=== PATIENT | male | born 1930 | race Asian ===

== ENCOUNTER 2018-07-21 19:10 | Inpatient (IN) | payer MEDICARE, MEDICAID ==
[~2018-07-21] VITALS: Ht 165.1 cm; Wt 58.5 kg
[2018-07-21] MEDS ORDERED: SODIUM CHLORIDE 0.9% 1,000 ML IV ONE (19:55)
[2018-07-21 20:35] LABS: BASOPHILS % 0.4 % (0.0-2.0); EOSINOPHILS % 1.2 % (0.0-5.0); HEMATOCRIT. 38.8 % (42.0-52.0); HEMOGLOBIN. 13.9 g/dL (14.0-18.0); LYMPHOCYTES % 13.1 % (20.0-50.0); MEAN CORPUSCULAR HEMOGLOBIN 31.2 pg (28.0-32.0); MEAN CORPUSCULAR VOLUME 86.8 fL (80.0-94.0); MEAN PLATELET VOLUME 7.9 fl (7.4-10.4); MONOCYTES % 5.3 % (2.0-8.0); PLATELET 166 x1000/uL (130-400); RED BLOOD CELL COUNT 4.47 mill/uL (4.7-6.1); RED CELL DISTRIBUTION WIDTH 14.5 % (11.6-14.6)
[2018-07-21 20:40] LABS: PARTIAL THROMBOPLASTIN TIME 26.8 sec (23.4-31.0); PROTHROMBIN TIME 10.5 sec (9.1-11.1)
[2018-07-21 20:43] LABS: CHLORIDE 101 mEq/L (98-107)
[2018-07-21] MEDS ORDERED: FUROSEMIDE 20MG/2ML VIAL IVP ONE (21:45)
[2018-07-21] MEDS: SODIUM CHLORIDE 0.9% 1,000 ML IV SCH (22:19)
[2018-07-21] MEDS ORDERED: ACETAMINOPHEN 325MG TABLET PO PRN (22:30)
[2018-07-21] MEDS ORDERED: LORAZEPAM 2MG/ML CPJ IV PRN (22:30)
[2018-07-21] MEDS ORDERED: ENOXAPARIN 40MG/0.4ML SYR SUBCUT SCH (22:30)
[2018-07-21] MEDS ORDERED: ONDANSETRON HCL 4MG/2ML INJ IV PRN (22:30)
[2018-07-21 23:12] LABS: CLARITY URINE CLEAR (CLEAR); COLOR URINE YELLOW (YELLOW); KETONES URINE NEGATIVE (NEGATIVE); LEUKOCYTE ESTERASE URINE TRACE (NEGATIVE); NITRITE URINE NEGATIVE (NEGATIVE); OCCULT BLOOD URINE NEGATIVE (NEGATIVE); PROTEIN URINE NEGATIVE (NEGATIVE); SPECIFIC GRAVITY URINE 1.014 (1.005-1.030)
[2018-07-22 01:05] VITALS: BP 114/60
[2018-07-22] MEDS ORDERED: DEXTROSE 50% WATER 50ML SYRINGE IV PRN (01:30)
[2018-07-22] MEDS: BLOOD SUGAR DIAGNOSTIC STRIP TEST SCH ×4 (06:33→20:11)
[2018-07-22] MEDS: INSULIN LISPRO 100 UNITS/ML SUBCUT SCH ×4 (06:36→20:10)
[2018-07-22 08:00] VITALS: BP 108/67
[2018-07-22] MEDS: ENOXAPARIN 40MG/0.4ML SYR SUBCUT SCH (08:51)
[2018-07-22 09:12] LABS: BASOPHILS % 1.1 % (0.0-2.0); EOSINOPHILS % 2.2 % (0.0-5.0); HEMATOCRIT. 36.3 % (42.0-52.0); HEMOGLOBIN. 12.9 g/dL (14.0-18.0); MEAN CORPUSCULAR VOLUME 87.2 fL (80.0-94.0); MONOCYTES % 5.7 % (2.0-8.0); PLATELET 124 x1000/uL (130-400); RED BLOOD CELL COUNT 4.16 mill/uL (4.7-6.1); RED CELL DISTRIBUTION WIDTH 14.6 % (11.6-14.6)
[2018-07-22 09:36] LABS: CHLORIDE 106 mEq/L (98-107)
[2018-07-22 09:46] LABS: PHOSPHORUS 2.9 mg/dL (2.5-4.9)
[2018-07-22 12:00] VITALS: BP 90/57
[2018-07-22] MEDS ORDERED: MAGNESIUM 2 G PREMIX 50 ML IV NR (15:00)
[2018-07-22 16:00] VITALS: BP 108/65
[2018-07-22] MEDS: SODIUM CHLORIDE 0.9% 1,000 ML IV SCH (18:12)
[2018-07-22 20:00] VITALS: BP 121/71
[2018-07-23] VITALS: BP 131/67
[2018-07-23 04:00] VITALS: BP 131/77
[2018-07-23] MEDS: BLOOD SUGAR DIAGNOSTIC STRIP TEST SCH ×4 (06:10→21:45)
[2018-07-23] MEDS: INSULIN LISPRO 100 UNITS/ML SUBCUT SCH ×4 (06:13→21:46)
[2018-07-23 08:00] VITALS: BP 115/73
[2018-07-23 08:50] LABS: CHLORIDE 105 mEq/L (98-107)
[2018-07-23] MEDS: ENOXAPARIN 40MG/0.4ML SYR SUBCUT SCH (09:00)
[2018-07-23 09:05] LABS: BASOPHILS % 0.6 % (0.0-2.0); EOSINOPHILS % 1.2 % (0.0-5.0); HEMATOCRIT. 37.3 % (42.0-52.0); HEMOGLOBIN. 13.1 g/dL (14.0-18.0); LYMPHOCYTES % 15.6 % (20.0-50.0); MEAN CORPUSCULAR HEMOGLOBIN 30.7 pg (28.0-32.0); MEAN CORPUSCULAR VOLUME 87.4 fL (80.0-94.0); MEAN PLATELET VOLUME 8.1 fl (7.4-10.4); NEUTROPHILS % 76.6 % (40.0-76.0); PLATELET 132 x1000/uL (130-400); RED BLOOD CELL COUNT 4.26 mill/uL (4.7-6.1); RED CELL DISTRIBUTION WIDTH 14.6 % (11.6-14.6)
[2018-07-23 12:00] VITALS: BP 123/75
[2018-07-23] MEDS: SODIUM CHLORIDE 0.9% 1,000 ML IV SCH (14:58)
[2018-07-23 16:00] VITALS: BP 137/71
[2018-07-23] MEDS ORDERED: CEFTRIAXONE 1,000 MG in DEXTROSE 5% WATER 50 ML IV SCH (18:00)
[2018-07-23 20:00] VITALS: BP 112/63
[2018-07-24] VITALS: BP 114/63
[2018-07-24 04:00] VITALS: BP 128/75
[2018-07-24] MEDS: INSULIN LISPRO 100 UNITS/ML SUBCUT SCH ×2 (06:42→13:02)
[2018-07-24] MEDS: BLOOD SUGAR DIAGNOSTIC STRIP TEST SCH ×2 (06:42→11:45)
[2018-07-24 08:00] VITALS: BP 128/75
[2018-07-24 08:13] LABS: BASOPHILS % 0.4 % (0.0-2.0); EOSINOPHILS % 1.6 % (0.0-5.0); HEMATOCRIT. 36.4 % (42.0-52.0); HEMOGLOBIN. 12.8 g/dL (14.0-18.0); LYMPHOCYTES % 16.1 % (20.0-50.0); MEAN CORPUSCULAR HEMOGLOBIN 30.6 pg (28.0-32.0); MEAN PLATELET VOLUME 8.1 fl (7.4-10.4); MONOCYTES % 5.4 % (2.0-8.0); NEUTROPHILS % 76.5 % (40.0-76.0); PLATELET 148 x1000/uL (130-400); RED BLOOD CELL COUNT 4.19 mill/uL (4.7-6.1); RED CELL DISTRIBUTION WIDTH 14.4 % (11.6-14.6)
[2018-07-24 08:56] LABS: CHLORIDE 107 mEq/L (98-107)
[2018-07-24] MEDS: ENOXAPARIN 40MG/0.4ML SYR SUBCUT SCH (09:50)
[2018-07-24 11:04] VITALS: BP 128/75
[2018-07-24 12:00] VITALS: BP 127/71
[2018-07-24] MEDS ORDERED: INSULIN GLARGINE UD 100 UNITS/ML SYR SUBCUT SCH (21:00)
[2018-07-25] MEDS ORDERED: GLIPIZIDE 5MG TABLET PO SCH (06:45)
== END 2018-07-24 16:43 | DRG 637 ==
LOC: ER 19:10 → 5WST 22:05 → EDBEDREQ 22:09 → EDBEDREQTM 22:09 → CANRESERV 22:42 → ENRESERV 22:42
PROVIDERS: ADMIT Internal Medicine Nephrology; ATTEND Internal Medicine Nephrology
DX: E11.65 Type 2 diabetes mellitus with hyperglycemia (principal); K85.90 Acute pancreatitis without necrosis or infection, unspecified; N39.0 Urinary tract infection, site not specified; E44.0 Moderate protein-calorie malnutrition; E83.42 Hypomagnesemia; E78.00 Pure hypercholesterolemia, unspecified; F03.90 Unspecified dementia, unspecified severity, without behavioral disturbance, psychotic disturbance, mood disturbance, and anxiety; I10 Essential (primary) hypertension; Z86.73 Personal history of transient ischemic attack (TIA), and cerebral infarction without residual deficits; Z68.21 Body mass index [BMI] 21.0-21.9, adult
CPT/HCPCS: 36415; 71045; 76705; 80048; 80061; 82962; 83735; 83880; 84100; 84484; 92610; 93306; 96361; 96374; 99285; A6261; J0696; J1650; J1815; J1940; J3475; J7030; J7060; A4315

== ENCOUNTER 2019-09-20 16:04 | Inpatient (IN) | payer MEDICARE, MEDICAID ==
[~2019-09-20] VITALS: Ht 167.6 cm; Wt 48.1 kg
[2019-09-20] MEDS ORDERED: SODIUM CHLORIDE 0.9% 1,000 ML IV ONE (18:50)
[2019-09-20 19:14] LABS: BASOPHILS % 1.4 % (0.0-2.0); EOSINOPHILS % 1.9 % (0.0-5.0); HEMATOCRIT. 37.9 % (42.0-52.0); HEMOGLOBIN. 13.2 g/dL (14.0-18.0); LYMPHOCYTES % 20.4 % (20.0-50.0); MEAN CORPUSCULAR HEMOGLOBIN 31.2 pg (28.0-32.0); MEAN CORPUSCULAR VOLUME 89.6 fL (80.0-94.0); MEAN PLATELET VOLUME 7.7 fl (7.4-10.4); MONOCYTES % 8.6 % (2.0-8.0); NEUTROPHILS % 67.7 % (40.0-76.0); PLATELET 253 x1000/uL (130-400); RED BLOOD CELL COUNT 4.23 mill/uL (4.7-6.1); RED CELL DISTRIBUTION WIDTH 15.1 % (11.6-14.6)
[2019-09-20 19:18] LABS: CHLORIDE 112 mEq/L (98-107)
[2019-09-20 19:19] LABS: INR 1.1; PROTHROMBIN TIME 11.6 sec (9.6-11.0)
[2019-09-20] MEDS ORDERED: FUROSEMIDE 20MG/2ML VIAL IVP ONE (20:15)
[2019-09-20] MEDS ORDERED: ONDANSETRON HCL 4MG/2ML INJ IV PRN (22:45)
[2019-09-20] MEDS ORDERED: CLONIDINE 0.1MG TABLET PO PRN (22:45)
[2019-09-20] MEDS ORDERED: HYDROCODONE/ACETAMINOPHEN 5/325MG TABLET PO PRN (22:45)
[2019-09-20] MEDS ORDERED: IPRATROPIUM/ALBUTEROL 0.5-3(2.5)MG/3ML NEB NEB PRN (22:45)
[2019-09-20] MEDS ORDERED: LORAZEPAM 2MG/ML CPJ IV PRN (22:45)
[2019-09-20] MEDS ORDERED: MORPHINE SULFATE 2 MG/ML CPJ (NOT FOR IM USE) IV PRN (22:45)
[2019-09-21] MEDS: SODIUM CHLORIDE 0.9% 1,000 ML IV SCH ×2 (04:13→17:45)
[2019-09-21 04:30] LABS: CLARITY URINE CLEAR (CLEAR); COLOR URINE YELLOW (YELLOW); KETONES URINE NEGATIVE (NEGATIVE); LEUKOCYTE ESTERASE URINE NEGATIVE (NEGATIVE); NITRITE URINE NEGATIVE (NEGATIVE); OCCULT BLOOD URINE TRACE (NEGATIVE); PROTEIN URINE NEGATIVE (NEGATIVE); SPECIFIC GRAVITY URINE 1.012 (1.005-1.030); UROBILINOGEN URINE 0.2 E.U./dL (0.2-1.0)
[2019-09-21 06:34] LABS: BASOPHILS % 0.8 % (0.0-2.0); EOSINOPHILS % 0.7 % (0.0-5.0); HEMATOCRIT. 37.6 % (42.0-52.0); HEMOGLOBIN. 13.1 g/dL (14.0-18.0); LYMPHOCYTES % 12.7 % (20.0-50.0); MEAN CORPUSCULAR HEMOGLOBIN 31.5 pg (28.0-32.0); MEAN PLATELET VOLUME 7.7 fl (7.4-10.4); MONOCYTES % 6.3 % (2.0-8.0); NEUTROPHILS % 79.5 % (40.0-76.0); PLATELET 186 x1000/uL (130-400); RED BLOOD CELL COUNT 4.17 mill/uL (4.7-6.1); RED CELL DISTRIBUTION WIDTH 14.9 % (11.6-14.6)
[2019-09-21] MEDS ORDERED: ENOXAPARIN 40MG/0.4ML SYR SUBCUT SCH (09:00)
[2019-09-21 09:30] VITALS: BP 169/94
[2019-09-21 12:00] VITALS: BP 134/83
[2019-09-21] MEDS ORDERED: DEXTROSE 50% WATER 50ML SYRINGE IV PRN (12:15)
[2019-09-21] MEDS: BLOOD SUGAR DIAGNOSTIC STRIP TEST SCH ×3 (12:20→20:55)
[2019-09-21] MEDS ORDERED: GLIP10TA10 PO (12:50)
[2019-09-21] MEDS ORDERED: CRES10 PO (12:50)
[2019-09-21] MEDS ORDERED: CIPR2.5D9 EACHEYE (12:50)
[2019-09-21] MEDS ORDERED: LAMO25TA3 PO (12:50)
[2019-09-21] MEDS ORDERED: INSU100I28 SQ (12:50)
[2019-09-21] MEDS ORDERED: METF-415 PO (12:50)
[2019-09-21] MEDS ORDERED: SITA100T11 PO (12:50)
[2019-09-21] MEDS ORDERED: TOPUD PO (12:50)
[2019-09-21] MEDS: THIAMINE HCL 100MG TABLET PO SCH (13:55)
[2019-09-21] MEDS: INSULIN LISPRO 100 UNITS/ML SUBCUT SCH ×3 (13:57→21:07)
[2019-09-21 16:00] VITALS: BP 137/81
[2019-09-21] MEDS ORDERED: LAMOTRIGINE 25 MG PO SCH (17:00)
[2019-09-21] MEDS ORDERED: METFORMIN HCL 850MG TABLET PO SCH (17:50)
[2019-09-21] MEDS: MEGESTROL ACETATE 400 MG/10 ML UDC PO SCH (18:31)
[2019-09-21] MEDS ORDERED: ACETAMINOPHEN 325MG TABLET PO PRN (19:44)
[2019-09-21 20:30] VITALS: BP 114/76
[2019-09-21] MEDS ORDERED: MEDICATION NOT ON FORMULARY EA (Rosuvastatin Calcium (Crestor) 10 MG) PO SCH (21:00)
[2019-09-21] MEDS: ATORVASTATIN CALCIUM 20MG TABLET PO SCH (21:08)
[2019-09-21] MEDS: INSULIN GLARGINE UD 100 UNITS/ML SYR SUBCUT SCH (21:08)
[2019-09-21] MEDS: LAMOTRIGINE 25MG TABLET PO SCH (21:09)
[2019-09-22] VITALS: BP 118/79
[2019-09-22 04:00] VITALS: BP 157/84
[2019-09-22] MEDS: BLOOD SUGAR DIAGNOSTIC STRIP TEST SCH ×4 (06:33→21:46)
[2019-09-22 07:38] LABS: BASOPHILS % 1.1 % (0.0-2.0); EOSINOPHILS % 1.7 % (0.0-5.0); HEMATOCRIT. 35.6 % (42.0-52.0); HEMOGLOBIN. 12.8 g/dL (14.0-18.0); LYMPHOCYTES % 21.4 % (20.0-50.0); MEAN CORPUSCULAR HEMOGLOBIN 32.1 pg (28.0-32.0); MEAN CORPUSCULAR VOLUME 89.2 fL (80.0-94.0); MEAN PLATELET VOLUME 7.6 fl (7.4-10.4); MONOCYTES % 6.6 % (2.0-8.0); NEUTROPHILS % 69.2 % (40.0-76.0); PLATELET 189 x1000/uL (130-400); RED BLOOD CELL COUNT 3.99 mill/uL (4.7-6.1); RED CELL DISTRIBUTION WIDTH 14.7 % (11.6-14.6)
[2019-09-22 07:54] LABS: CHLORIDE 114 mEq/L (98-107)
[2019-09-22 08:00] VITALS: BP 162/85
[2019-09-22] MEDS: INSULIN LISPRO 100 UNITS/ML SUBCUT SCH ×4 (08:20→21:49)
[2019-09-22] MEDS: THIAMINE HCL 100MG TABLET PO SCH (08:47)
[2019-09-22] MEDS: LINAGLIPTIN 5MG TABLET PO SCH (08:47)
[2019-09-22] MEDS: LAMOTRIGINE 25MG TABLET PO SCH ×2 (08:47→17:28)
[2019-09-22] MEDS: ASPIRIN 81MG TABLET PO SCH (08:47)
[2019-09-22] MEDS: ENOXAPARIN 30MG/0.3ML SYR SUBCUT SCH (08:48)
[2019-09-22] MEDS ORDERED: MEDICATION NOT ON FORMULARY EA (Sitagliptin Phosphate (Januvia) 100 MG) PO SCH (09:00)
[2019-09-22] MEDS: MEGESTROL ACETATE 400 MG/10 ML UDC PO SCH (09:00)
[2019-09-22] MEDS ORDERED: GLIPIZIDE 10MG TABLET PO SCH (09:00)
[2019-09-22] MEDS: INSULIN GLARGINE UD 100 UNITS/ML SYR SUBCUT SCH ×2 (10:49→22:52)
[2019-09-22 12:00] VITALS: BP 137/80
[2019-09-22 16:00] VITALS: BP 149/76
[2019-09-22] MEDS: SODIUM CHLORIDE 0.9% 1,000 ML IV SCH (17:27)
[2019-09-22 20:41] VITALS: BP 118/76
[2019-09-22] MEDS: ATORVASTATIN CALCIUM 20MG TABLET PO SCH (21:46)
[2019-09-23] VITALS: BP 122/73
[2019-09-23 04:00] VITALS: BP 160/83
[2019-09-23] MEDS: BLOOD SUGAR DIAGNOSTIC STRIP TEST SCH ×3 (07:01→17:20)
[2019-09-23] MEDS: INSULIN LISPRO 100 UNITS/ML SUBCUT SCH ×3 (07:02→19:14)
[2019-09-23 08:00] VITALS: BP 153/75
[2019-09-23] MEDS: LINAGLIPTIN 5MG TABLET PO SCH (09:30)
[2019-09-23] MEDS: THIAMINE HCL 100MG TABLET PO SCH (09:30)
[2019-09-23] MEDS: ASPIRIN 81MG TABLET PO SCH (09:30)
[2019-09-23] MEDS: LAMOTRIGINE 25MG TABLET PO SCH ×2 (09:30→19:11)
[2019-09-23] MEDS: ENOXAPARIN 30MG/0.3ML SYR SUBCUT SCH (09:31)
[2019-09-23] MEDS: MEGESTROL ACETATE 400 MG/10 ML UDC PO SCH (09:53)
[2019-09-23] MEDS: INSULIN GLARGINE UD 100 UNITS/ML SYR SUBCUT SCH (10:24)
[2019-09-23 12:00] VITALS: BP 147/73
[2019-09-23] MEDS: SODIUM CHLORIDE 0.9% 1,000 ML IV SCH (13:02)
[2019-09-23] MEDS ORDERED: MEGE400O4 PO (14:18)
[2019-09-23] MEDS ORDERED: ASPI-1160 PO (14:18)
[2019-09-23] MEDS ORDERED: THIA100T72 PO (14:18)
[2019-09-23 15:32] VITALS: BP 147/73
[2019-09-23 16:00] VITALS: BP 130/63
[2019-09-23 17:03] LABS: BASOPHILS % 0.8 % (0.0-2.0); EOSINOPHILS % 2.1 % (0.0-5.0); HEMATOCRIT. 30.9 % (42.0-52.0); HEMOGLOBIN. 11.1 g/dL (14.0-18.0); LYMPHOCYTES % 20.9 % (20.0-50.0); MEAN CORPUSCULAR VOLUME 89.2 fL (80.0-94.0); MEAN PLATELET VOLUME 7.6 fl (7.4-10.4); MONOCYTES % 7.2 % (2.0-8.0); PLATELET 162 x1000/uL (130-400); RED BLOOD CELL COUNT 3.47 mill/uL (4.7-6.1); RED CELL DISTRIBUTION WIDTH 14.9 % (11.6-14.6)
[2019-09-23 17:20] LABS: CHLORIDE 116 mEq/L (98-107)
[2019-09-24] MEDS ORDERED: INSULIN GLARGINE UD 100 UNITS/ML SYR SUBCUT SCH (10:00)
== END 2019-09-23 20:40 | DRG 637 ==
LOC: ER 16:04 → 6WST 20:06 → EDBEDREQ 20:22 → EDBEDREQSVC 20:22 → EDBEDREQTM 20:22 → ENRESERV 09-21 08:37
PROVIDERS: ADMIT Internal Medicine Nephrology; ATTEND Internal Medicine Nephrology
DX: E11.65 Type 2 diabetes mellitus with hyperglycemia (principal); N17.0 Acute kidney failure with tubular necrosis; E44.0 Moderate protein-calorie malnutrition; Z68.1 Body mass index [BMI] 19.9 or less, adult; R62.7 Adult failure to thrive; E78.00 Pure hypercholesterolemia, unspecified; E78.5 Hyperlipidemia, unspecified; E87.8 Other disorders of electrolyte and fluid balance, not elsewhere classified; F03.90 Unspecified dementia, unspecified severity, without behavioral disturbance, psychotic disturbance, mood disturbance, and anxiety; I11.0 Hypertensive heart disease with heart failure; I50.9 Heart failure, unspecified; Z86.73 Personal history of transient ischemic attack (TIA), and cerebral infarction without residual deficits; D63.8 Anemia in other chronic diseases classified elsewhere; R63.0 Anorexia; Z79.4 Long term (current) use of insulin; Z79.899 Other long term (current) drug therapy
CPT/HCPCS: 36415; 71045; 80048; 80053; 81003; 82962; 83036; 83735; 83880; 84100; 84484; 85025; 92610; 93005; 93306; 97110; 97163; 99285; J1650; J1815; J1940; J7030; A4315